=== PATIENT | female | born 1970 | race Caucasian/White ===

== ENCOUNTER 2021-07-27 11:22 | Emergency (ER) | payer OTHER ==
[~2021-07-27] VITALS: Ht 167.6 cm; Wt 89.8 kg
[2021-07-27] MEDS ORDERED: IBU800 M1 PO (12:11)
[2021-07-27] MEDS ORDERED: Norco 5-325 Ta1 EACH PO (13:31)
== END 2021-07-27 13:49 | disposition home or self-care (01) ==
LOC: ER 11:22
DX: S93.401A Sprain of unspecified ligament of right ankle, initial encounter (principal); W18.30XA Fall on same level, unspecified, initial encounter
CPT/HCPCS: 29515; 73610; 99283-25; A9270

== ENCOUNTER 2022-01-07 12:14 | Emergency (ER) | payer OTHER ==
[~2022-01-07] VITALS: Ht 167.6 cm; Wt 88.0 kg
[~2022-01-07 12:14] MED LIST: IBU800 M1 PO; Norco 5-325 Ta1 EACH PO
[2022-01-07] MEDS ORDERED: CEPH500 PO (12:36)
== END 2022-01-07 12:37 | disposition home or self-care (01) ==
LOC: ER 12:14
DX: L08.9 Local infection of the skin and subcutaneous tissue, unspecified (principal); M25.571 Pain in right ankle and joints of right foot; Z91.018 Allergy to other foods
CPT/HCPCS: 99282

== ENCOUNTER 2022-04-27 18:28 | Emergency (ER) | payer OTHER ==
[~2022-04-27] VITALS: Ht 167.6 cm; Wt 85.7 kg
[~2022-04-27 18:28] MED LIST changes: +CEPH500 PO
[2022-04-27 19:45] LABS: Influenza A, PCR NEGATIVE (NEGATIVE); Influenza B, PCR NEGATIVE (NEGATIVE); Resp Syncytial Virus, PCR NEGATIVE (NEGATIVE); SARS-Cov-2 (COVID-19) PCR, MMC NEGATIVE (NEGATIVE)
== END 2022-04-27 19:10 | disposition left against medical advice (07) ==
LOC: ER 18:28
PROVIDERS: Physician Assistant
DX: R51.9 Headache, unspecified (principal); R42 Dizziness and giddiness; R53.1 Weakness; R11.0 Nausea; R06.02 Shortness of breath; Z53.21 Procedure and treatment not carried out due to patient leaving prior to being seen by health care provider
CPT/HCPCS: 0241U